=== PATIENT | female | born 1990 | race African-American/Black ===

== ENCOUNTER 2017-11-14 15:15 | Emergency (ER) | payer MEDICAID, OTHER | END 2017-11-14 18:24 | disposition home or self-care (01) | LOC: FTE 15:15 | DX: S82.831A Other fracture of upper and lower end of right fibula, initial encounter for closed fracture (principal); W18.39XA Other fall on same level, initial encounter; Y92.9 Unspecified place or not applicable | CPT/HCPCS: 73610; 73610-RT; 99283-25 ==